=== PATIENT | male | born 1955 | race Caucasian/White ===

== ENCOUNTER → 2022-09-14 09:28 | Outpatient (CLI) | payer MEDICARE, OTHER, SELFPAY ==
--- NOTE | 2022-09-14 09:33 | DI.RAD.S_ITS ---
PROCEDURE: XR RIBS LT MIN 3V W CXR1V INDICATIONS: Left rib pain TECHNIQUE: 2 views of the left ribs were acquired, along with a single view chest. COMPARISON: None. FINDINGS: Surgical changes and devices: None. Bones and chest wall: Old healed rib fractures are noted bilaterally, involving the right 5th, 6th and 8th ribs in the left 5th and 6th ribs. Small incidental probable cervical ribs noted as well Lungs and pleura: No pleural effusions or pneumothorax. Lungs appear clear. Mediastinum: Mediastinal contours appear normal. Heart size is normal. IMPRESSION: Old healed bilateral rib fractures Approved by: Shantanu Miller M.D. on 09/14/2022 at 17:26
== END ==
PROVIDERS: PCP Family Medicine; Referring Provider Nurse Practitioner Family; Visit Provider Nurse Practitioner Family
DX: R07.81 Pleurodynia (principal); Z87.81 Personal history of (healed) traumatic fracture
CPT/HCPCS: 71101

== ENCOUNTER → 2023-04-04 08:14 | Outpatient (CLI) | payer MEDICARE, OTHER, SELFPAY ==
--- NOTE | 2023-04-04 08:32 | DI.CT.S_ITS ---
PROCEDURE: CT LUNG LOW DOSE SCREENING INDICATIONS: more than 25 pyh of smoking TECHNIQUE: Noncontrast 2.0-2.5 mm thick sections acquired from the pulmonary apices to the posterior costophrenic angles. 7 mm thick axial MIP, and 5 mm coronal and sagittal reformats were then acquired. A low radiation dose technique was utilized. COMPARISON: None. FINDINGS: Image quality: Diagnostic, given the low radiation dose technique. Lungs and pleura: Focal consolidative airspace opacities are present at the medial aspect of the right upper lobe (series 3/image 50). Tree-in-bud pulmonary radiopacities are present within the anterior aspect of the right upper lobe. There is diffuse interlobular septal thickening in a peripheral distribution in the upper and mid lungs bilaterally. Mediastinum: Heart size is normal. No pericardial effusion. No mediastinal adenopathy by size criteria. Thoracic aorta and central pulmonary arteries are normal in size. Scattered atheromatous calcifications are present within the aortic arch. Esophagus is normal in caliber. No hiatal hernia. Bones and chest wall: No suspicious bony lesions. No vertebral body compression fractures. No axillary or supraclavicular adenopathy by size criteria. Thyroid gland is unremarkable. Abdomen: Visualized upper abdomen solid organs and bowel loops appear normal in the absence of contrast. IMPRESSION: 1. Right upper lobe airspace opacities. No prior studies are available for comparison. Findings suggest aspiration or infection; however underlying neoplasm cannot be excluded. Three-month follow-up is recommended. 2. Peripheral fibrotic changes noted. LUNG-RADS 4A; [address] follow-up recommended. Dictated by: Zayda Fischer M.D. on 04/04/2023 at 10:09 Approved by: Zayda Fischer M.D. on 04/04/2023 at 10:14
== END ==
PROVIDERS: PCP Family Medicine; Referring Provider Internal Medicine Critical Care Medicine; Visit Provider Internal Medicine Critical Care Medicine
DX: F17.210 Nicotine dependence, cigarettes, uncomplicated; R05.3 Chronic cough; J98.8 Other specified respiratory disorders
CPT/HCPCS: 71271; 94060; 94726; 94729

== ENCOUNTER 2023-05-10 10:20 | Day surgery (SDC) | payer MEDICARE, OTHER, SELFPAY ==
[2023-05-09 11:59] VITALS: BMI 28.1
--- NOTE | 2023-05-10 | PATH_ITS ---
Note [facility] Accession Number: [id number] TESTS RESULT FLAG UNITS REF RANGE LAB Clinician Provided Cytology Information No. of containers..01 Other (Miscellaneous) Source: RIGHT UPPER LOBE/LUNG DIAGNOSIS: RIGHT UPPER LOBE/LUNG, WASHING NEGATIVE FOR MALIGNANT CELLS. BRONCHIAL EPITHELIAL CELLS AND MACROPHAGES ARE PRESENT. THIS INTERPRETATION INCLUDES EVALUATION OF A CELL BLOCK. Pathologist ICD10: 01 J18.9 Signed out by: Dixie Arce MD, Pathologist NPI- [id number] Performed by: Flip Ballard, Active Directory Administrator ([facility]) Gross description: 25 CC, PINK, CLOUDY RECEIVED: FRESH IN WHITE CAP CONTAINER.VO /VDU 05/11/2023 1028 Local FLAG LEGEND: L-Low Normal,H-High Normal,LL-Alert Low,HH-Alert High <-Panic Low,>-Panic High,A-Abnormal,AA-Critical Abnormal Performed at: 01 =Z [facility] [address], [place] [address] Venu Dyer MD, Performed at: 01 [facility] [address], [place], [place] [id number] MD Venu Dyer MD Phone: [phone]
[2023-05-10 10:41] VITALS: BP 134/80; PULSE 100; RESP 16; TEMP 36.6; O2SAT 98; BMI 28.1
[2023-05-10] MEDS: LACTATED RINGERS 1,000 ML 84 ML IV (11:05)
[2023-05-10 12:30] VITALS: BP 113/67; PULSE 97; RESP 17; TEMP 36.8; O2SAT 97
[2023-05-10 12:35] VITALS: BP 123/63; PULSE 93; RESP 20; O2SAT 96
[2023-05-10 12:40] VITALS: BP 109/63; PULSE 92; RESP 18; O2SAT 95
[2023-05-10] MEDS: BENZOCAINE/MENTHOL 1 LOZ PKT 1 EACH PO (12:41)
[2023-05-10 12:55] VITALS: BP 119/85; PULSE 81; RESP 15; O2SAT 94
--- NOTE | 2023-05-10 13:02 | SUR.PHASEI ---
Called physician regarding lack of discharge orders for patient. Also inquired to see if patient needs a CXR s/p bronchoscopy. Per office staff, no CXR necessary prior to discharge.
[2023-05-10 13:10] VITALS: BP 125/77; PULSE 88; RESP 15; TEMP 36.7; O2SAT 93
--- NOTE | 2023-05-10 13:11 | PM.PROC.1 ---
Procedures Date/Time Date of procedure: 05/10/23 Time of procedure: 12:00 General Procedure description: Bronchoscopy with bronchial alveolar lavage The patient was sedated per anesthesia. Bronchoscope was inserted in the left nasal passage and lidocaine was applied over the vocal cords. Bronchoscope was inserted into the trachea. Examination of the airways was normal with normal mucosa and no endobronchial lesions. Minimal secretions. Bronchial alveolar lavage was performed from right upper lobe using a total of 80 mL sterile saline with approximately 30 mL return of fluid. Patient tolerated the procedure well. There was no bleeding. No complications. Patient will be recovered per protocol. Complications: none
--- NOTE | 2023-05-10 13:13 | P.DS_ITS ---
History of Present Illness History of Present Illness Chief complaint: Bronchoscopy Discharge Providers Provider Discharge Date: 05/10/23 Primary care physician: Noé Chance MD Discharge provider: Diego Ayoub MD Exam Vital Signs (past 8 hours): - 05/10/23 10:41 05/10/23 12:30 05/10/23 12:35 Temperature 97.8 F 98.2 F Pulse Rate 100 H 97 H 93 H Respiratory Rate 16 17 20 Blood Pressure 134/80 113/67 123/63 Pulse Oximetry 98 97 96 Oxygen Delivery Method Room Air Room Air Room Air 05/10/23 12:40 05/10/23 12:55 Temperature Pulse Rate 92 H 81 Respiratory Rate 18 15 Blood Pressure 109/63 119/85 Pulse Oximetry 95 94 Oxygen Delivery Method Room Air Room Air Oxygen Delivery Method Room Air [facility] Medical History (Updated 05/10/23 @ 11:49 by Diego Ayoub MD) Rib fractures HLD (hyperlipidemia) Surgical History (Updated 05/09/23 @ 12:02 by Savanna Sherman RN) Hx of bilateral cataract extraction Social History household members: spouse Smoking Status: Current every day smoker alcohol intake: current Discharge Plan Discharge Plan Patient Disposition: Home Provider Discharge Comment: discharge home Nursing Discharge Comment: Diet as tolerated. Resume your normal home medications. Discharge orders & Medications Discharge Orders: Discharge (Order); Ordered 05/10/23 Ordered By: Diego Ayoub Prescriptions: Continued lisinopril-hydrochlorothiazide 20-12.5 mg tablet 1 tab PO BID rosuvastatin 5 mg tablet 5 mg PO .COMPLEX Rx Instructions: 5 mg orally every other day; amlodipine 2.5 mg tablet 2.5 mg PO DAILY cholecalciferol (vitamin D3) PO aspirin [Adult Aspirin Regimen] 81 mg tablet,delayed release (DR/EC) 81 mg PO DAILY fluticasone propionate [Flonase Allergy Relief] 50 mcg/actuation spray,suspension 1 spray intranasal Q12H Qty: 16 0RF Rx Instructions: administer into each nostril Follow up/Referrals: Noé Chance MD [Primary Care Provider] - Diego Ayoub MD [Physician] - 2 Weeks Diet/Activity/Treatments Diet comment: regular Activity: as tolerated Visit Report/Discharge Packet Instructions: DI for Bronchoscopy, Diagnostic Stand Alone Forms: Surgery Discharge Discharge Data Primary Care Provider: Noé Chance Attending Provider: Diego Ayoub
== END 2023-05-10 13:20 | disposition home or self-care (01) ==
PROVIDERS: PCP Family Medicine; Referring Provider Internal Medicine Critical Care Medicine; Visit Provider Internal Medicine Critical Care Medicine
PROC: 0BJ08ZZ Inspection of Tracheobronchial Tree, Via Natural or Artificial Opening Endoscopic (ICD-10-PCS; CPT 31622; principal; 2023-05-10 11:45)
DX: J18.9 Pneumonia, unspecified organism (principal)
CPT/HCPCS: 31624; 87116; 87206; J3010

== ENCOUNTER → 2023-07-11 11:56 | Outpatient (CLI) | payer MEDICARE, OTHER, SELFPAY ==
--- NOTE | 2023-07-11 11:57 | DI.CT.S_ITS ---
PROCEDURE: CT CHEST W CON INDICATIONS: right upper lobe infiltrate TECHNIQUE: After the administration of intravenous contrast, 5 mm thick sections acquired from the pulmonary apices to the posterior costophrenic angles. 1 mm axial lung, 5 mm thick coronal and sagittal reformats and 7 mm axial MIP were acquired. For radiation dose reduction, the following was used: automated exposure control, adjustment of mA and/or kV according to patient size. COMPARISON: [facility], CT, CT LUNG LOW DOSE SCREENING, 04/04/2023, 8:31. FINDINGS: Image quality: Diagnostic. Lower Neck: No enlarged lymph nodes. Thyroid: No thyroid nodules which require sonographic follow up, per consensus guidelines. Axillae: No enlarged lymph nodes. Chest Wall: Unremarkable. Bones: Remote bilateral posterolateral rib fractures are seen, some of which demonstrate poor healing. Lungs and Pleura: Minimal right upper lobe opacity can be seen, as on series 3, image 121. This is clearly improved compared to the prior examination. No pneumothorax or pleural effusions. No suspicious nodules. Mild subpleural fibrotic change can be seen. Heart: Heart size is normal. No pericardial effusion. There is prominent coronary artery calcification. Thoracic Vessels: The aorta and pulmonary arteries demonstrate normal size. Atherosclerotic calcification is noted. Mediastinum and Ashley: No enlarged lymph nodes. Esophagus: No wall thickening. No hiatal hernia. Upper Abdomen: Visualized upper abdomen solid organs and bowel loops appear normal. IMPRESSION: Nearly resolved right upper lobe infiltrate. Mild subpleural fibrotic change can be seen, as before. Additional findings: Advanced coronary artery calcification Remote bilateral rib fractures Dictated by: Michael Pringle M.D. on 07/11/2023 at 14:00 Approved by: Michael Pringle M.D. on 07/11/2023 at 14:04
[2023-07-11 12:30] LABS: Estimated Glomerular Filt Rate > 60 mL/min (>60)
== END ==
LOC: CT 11:57
PROVIDERS: Radiology Diagnostic Radiology; PCP Family Medicine; Referring Provider Internal Medicine Critical Care Medicine; Visit Provider Internal Medicine Critical Care Medicine
DX: J18.9 Pneumonia, unspecified organism (principal); R91.8 Other nonspecific abnormal finding of lung field; I25.10 Atherosclerotic heart disease of native coronary artery without angina pectoris; S22.43XS Multiple fractures of ribs, bilateral, sequela
CPT/HCPCS: 36415; 71260; 82565; Q9967

== ENCOUNTER 2024-03-17 11:54 | Day surgery (SDC) | payer MEDICARE, OTHER, SELFPAY ==
[2024-03-17 12:32] VITALS: BP 147/86; PULSE 83; RESP 16; TEMP 36.2; O2SAT 100
--- NOTE | 2024-03-17 13:05 | PM.HP.1 ---
History of Present Illness History of Present Illness Date Patient Seen: 03/17/24 Chief complaint: Colonoscopy Narrative: Colon cancer screening [facility] Medical History (Updated 08/21/23 @ 10:40 by Diego Ayoub MD) Rib fractures HLD (hyperlipidemia) Surgical History (Updated 05/09/23 @ 12:02 by Savanna Sherman RN) Hx of bilateral cataract extraction Social History household members: spouse Smoking Status: Former smoker alcohol intake: current Meds Home Medications and Allergies Home Medications Medication Instructions Recorded Confirmed Type amlodipine 2.5 mg tablet 2.5 mg PO DAILY 09/14/22 03/17/24 History cholecalciferol (vitamin D3) PO 09/14/22 08/21/23 History fluticasone propionate 50 1 spray intranasal Q12H #16 grams 09/14/22 03/17/24 Rx mcg/actuation nasal spray,suspension (Flonase Allergy Relief) lisinopril 20 1 tab PO BID 09/14/22 03/17/24 History mg-hydrochlorothiazide 12.5 mg tablet rosuvastatin 5 mg tablet 5 mg PO .COMPLEX 09/14/22 03/17/24 History codeine 10 mg-guaifenesin 200 mg/5 10 ml PO .qhs PRN cough #250 mL 07/05/23 08/21/23 Rx mL oral liquid Allergies Allergy/AdvReac Type Severity Reaction Status Date / Time No Known Drug Allergies Allergy Verified 03/17/24 12:22 Exam Vital Signs (past 8 hours): - 03/17/24 12:32 Temperature 97.1 F L Pulse Rate 83 Respiratory Rate 16 Blood Pressure 147/86 H Pulse Oximetry 100 Oxygen Delivery Method Room Air Oxygen Delivery Method Room Air Narrative Exam Narrative: Oropharynx free of lesions Chest clear to auscultation percussion Cardiac exam reveals no S3 or murmur Assessment & Plan Assessment & Plan narrative: Follow-up screening colonoscopy. Risks, benefits, alternatives have explained. Time-Based Coding :: [TOTAL MINUTES] spent with patient and on the chart (including review of chart, obtaining history, exam, reviewing outside data, placing orders, documenting exam and treatment plan, and counseling patient) on [DATE].
--- NOTE | 2024-03-17 13:06 | PM.OP.COLON ---
Operative Date/Time/Diagnoses Pre-op diagnosis: See indication and findings Procedure & Clinicians Study performed: Colonoscopy Indications: Screening Surgeon: Miles Hinds Procedure Notes Procedure in detail: After informed consent was obtained the patient was placed in left lateral decubitus position. The video colonoscope was introduced the rectum slowly advanced cecum preparation was good. On slow withdrawal mucosa was carefully examined. The scope was removed. The patient tolerated procedure well. Blood loss none Complications none Sedation Findings 1. Normal colonoscopy to cecum. Patient should have follow-up colonoscopy in 10 years
[2024-03-17] MEDS: LACTATED RINGERS 1,000 ML 42 ML IV (13:19)
[2024-03-17 13:24] VITALS: BP 102/68; PULSE 100; RESP 14; TEMP 36.2; O2SAT 93
[2024-03-17 13:29] VITALS: BP 98/71; PULSE 84; RESP 16; O2SAT 100
[2024-03-17 13:33] VITALS: BP 104/69; PULSE 86; RESP 18; O2SAT 99
[2024-03-17 13:39] VITALS: BP 115/73; PULSE 97; RESP 14; TEMP 36.4; O2SAT 100
[2024-03-17 13:47] VITALS: BP 131/71; PULSE 84; RESP 18; TEMP 36.3; O2SAT 99
== END 2024-03-17 13:55 | disposition home or self-care (01) ==
PROVIDERS: Admitting Provider Internal Medicine Gastroenterology; PCP Family Medicine; Referring Provider Internal Medicine Gastroenterology; Visit Provider Internal Medicine Gastroenterology
PROC: 0DJD8ZZ Inspection of Lower Intestinal Tract, Via Natural or Artificial Opening Endoscopic (ICD-10-PCS; CPT 45378; principal; 2024-03-17 13:00)
DX: Z12.11 Encounter for screening for malignant neoplasm of colon (principal)
CPT/HCPCS: G0121; J2704

== ENCOUNTER → 2024-07-09 09:14 | Outpatient (CLI) | payer MEDICARE, OTHER, SELFPAY ==
--- NOTE | 2024-07-09 09:15 | DI.CT.S_ITS ---
PROCEDURE: CT CHEST WO CON INDICATIONS: lung nodules TECHNIQUE: Noncontrast 5 mm thick sections acquired from the pulmonary apices to the posterior costophrenic angles. 1 mm lung window, 5 mm thick coronal and sagittal and 7 mm axial MIP reformats were then acquired. For radiation dose reduction, the following was used: automated exposure control, adjustment of mA and/or kV according to patient size. COMPARISON: [facility], CT, CT CHEST W CON, 07/11/2023, 12:47. FINDINGS: Lower Neck: No enlarged lymph nodes. Thyroid: No thyroid nodules which require sonographic follow up, per consensus guidelines. Axillae: No enlarged lymph nodes. Chest Wall: Unremarkable. Bones: Ununited bilateral rib fractures. Lungs and Pleura: No pneumothorax or pleural effusions. No consolidation or suspicious nodules. prior right upper lobe infiltrate has resolved. Persistent subpleural degenerative fibrotic changes. Dense coronary artery vascular calcification Heart: Heart size is normal. No pericardial effusion. Thoracic Vessels: The aorta and pulmonary arteries demonstrate normal size. Mediastinum and Ashley: No enlarged lymph nodes. Esophagus: No wall thickening. No hiatal hernia. Upper Abdomen: Visualized upper abdomen solid organs and bowel loops appear normal. IMPRESSION: Resolved right upper lobe pulmonary infiltrate. No new infiltrate. Chronic subpleural interstitial changes. Ununited bilateral rib fractures, stable Approved by: Shantanu Miller M.D. on 07/09/2024 at 16:00
== END ==
PROVIDERS: PCP Family Medicine; Referring Provider Internal Medicine Critical Care Medicine; Visit Provider Internal Medicine Critical Care Medicine
DX: I25.10 Atherosclerotic heart disease of native coronary artery without angina pectoris (principal); R91.8 Other nonspecific abnormal finding of lung field; F17.200 Nicotine dependence, unspecified, uncomplicated; S22.43XS Multiple fractures of ribs, bilateral, sequela
CPT/HCPCS: 71250